=== PATIENT | male | born 2000 | race Caucasian/White ===

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

== ENCOUNTER 2024-01-01 11:02 | Emergency (ER) | payer OTHER, SELFPAY ==
[2024-01-01 11:02] VITALS: BP 118/82; PULSE 115; RESP 16; TEMP 36.3; O2SAT 97
[2024-01-01 11:59] LABS: Absolute Lymphocyte Count 1.44 X10^3/uL (0.83-4.51); Absolute Neutrophil Count 3.7 X10^3/uL (2.0-7.7); Basophil# 0.02 X10^3/uL; Basophil% 0.3 % (0-1); Eosinophil# 0.06 X10^3/uL; Hematocrit 51.8 % (40-54); Hemoglobin 17.9 g/dL (13.0-16.5); Lymphocyte # 1.44 X10^3/ul (0.83-4.51); Lymphocyte % 24.8 % (19-41); Mean Corp Hgb Conc 34.6 g/dL (32-36); Mean Corpuscular Hgb 32.5 pg (27.0-32.0); Mean Platelet Vol. 9.4 fl (6.2-12.0); Monocyte# 0.49 X10^3/uL; Monocyte% 8.4 % (0-10); NRBC Flagged by Analyzer 0 % (0-5); Neutrophil # 3.72 X10^3/uL (2.7-7.7); Neutrophil % 64.1 % (47-70); Platelet Count 249 K/mm3 (150-450); RBC Distribution Width CV 11.9 % (11.6-14.6); RBC Distribution Width SD 41.1 fl (35.1-43.9); Red Blood Count 5.51 M/mm3 (4.6-6.2); White Blood Count 5.8 K/mm3 (4.4-11.0)
[2024-01-01 12:02] VITALS: PULSE 70; RESP 16; O2SAT 98
--- NOTE | 2024-01-01 12:08 | EDS_ITS ---
HPI <JAMILA Maurer - Last Filed: 01/01/24 15:44> HPI - Psych History of Present Illness Chief Complaint: Suicidal Narrative Narrative: Patient presenting today due to a suicide attempt that occurred last night. He reports that he has struggled with depression for a long time but it has progressively gotten worse. He did see his psychiatrist in the past but felt that it only made things worse. He is not on any medications for his depression. He reports that over the past 2 weeks he has had suicidal thoughts every night. Last night, these thoughts became overwhelming and he had a plan to jump off a bridge. He reports that he then left his house to attempt to execute this plan but was stopped by the police and lied to them telling them that he was not suicidal. This morning his parents encouraged to come in to be seen. He denies any previous suicide attempts. He reports occasional alcohol and marijuana use. He denies any HI and hallucinations. PFSH <JAMILA Maurer - Last Filed: 01/01/24 15:44> [facility] Home Medications NK 01/01/24 [History Last Taken Unknown] Allergy/AdvReac Type Severity Reaction Status Date / Time No Known Allergies Allergy Verified 06/24/18 08:57 Social History (Updated 01/01/24 @ 12:21 by Chelsie Chavez) housing: apartment current occupational status: student Smoking Status: Never smoker ROS <JAMILA Maurer - Last Filed: 01/01/24 15:44> ROS ED Constitutional Constitutional ED: Denies chills or fever(s) Cardiovascular Cardiovascular: Denies chest pain Respiratory/Chest Respiratory/Chest: Denies cough or dyspnea Gastrointestinal Gastrointestinal: Denies abdominal pain, nausea or vomiting Musculoskeletal Musculoskeletal: Denies arthralgias or myalgias Integumentary Denies rash Neurologic Neurologic: Denies weakness Psychiatric Psychiatric: Reports depression, suicidal ideation and suicidal thoughts; Denies hallucinations or homicidal ideation EXAM <JAMILA Maurer - Last Filed: 01/01/24 15:44> Physical Exam Const Vital Signs: 01/01/24 11:02 01/01/24 12:02 01/01/24 14:44 Temperature 97.4 F L Temperature Source Temporal Pulse Rate 115 H 70 83 Respiratory Rate 16 16 14 Blood Pressure 118/82 H 112/73 Blood Pressure Mean 94 86 Pulse Ox 97 98 98 Oxygen Delivery Method Room Air Room Air 01/01/24 15:26 Temperature Temperature Source Pulse Rate 60 Respiratory Rate 14 Blood Pressure Blood Pressure Mean Pulse Ox 98 Oxygen Delivery Method Positive well nourished, well developed and no apparent distress General Appearance ED: well developed HEENT Reports normocephalic and head/scalp atraumatic Mouth ED: Yes moist mucous membranes normal Eyes PERRL and EOMs intact bilaterally Neck full ROM and supple Chest Wall inspection of chest normal Resp normal respiratory effort and clear to auscultation bilaterally Cardio regular rate and regular rhythm GI soft to palpation, non-tender, non-distended and no masses Back/Spine normal ROM and normal to inspection Extremity normal to inspection and full ROM Neuro oriented x3, CN's II-XII intact bilaterally, moves all extremities, no focal motor deficits and no sensory deficits noted Sensorium / Orientation: awake and alert Psych cooperative, speech normal, denies hallucinations and denies homicidal ideation Appearance: grossly normal Attitude: withdrawn Activity / Motor Behavior: avoids eye contact Speech: soft Mood & Affect: depressed and flat affect Thought Process: normal thought process Thought Content: suicidality Memory / Cognition: memory grossly intact Insight: poor Judgement: poor Skin no rashes or lesions noted and no wounds <Dr. Jack Meyer MD - Last Filed: 01/01/24 13:58> Physical Exam Const Vital Signs: 01/01/24 11:02 01/01/24 12:02 01/01/24 14:44 Temperature 97.4 F L Temperature Source Temporal Pulse Rate 115 H 70 83 Respiratory Rate 16 16 14 Blood Pressure 118/82 H 112/73 Blood Pressure Mean 94 86 Pulse Ox 97 98 98 Oxygen Delivery Method Room Air Room Air 01/01/24 15:26 Temperature Temperature Source Pulse Rate 60 Respiratory Rate 14 Blood Pressure Blood Pressure Mean Pulse Ox 98 Oxygen Delivery Method MDM <JAMILA Maurer - Last Filed: 01/01/24 15:44> [facility] Narrative Medical decision making narrative: Patient presenting due to suicidal thoughts that he has had over the past 2 weeks. He reports that he did attempt to commit suicide last night but was stopped by the police and was unable to follow through. He reports that he does still feel suicidal. Medical clearance labs will be obtained and crisis will evaluate patient. Crisis does feel that patient would benefit from inpatient treatment. He will be pink slipped. Patient is medically cleared, placement is pending. I have personally performed a face to face assessment of the patient and have reviewed the АЛЕКСАНДР Note. I performed a substantive portion of the visit including all aspects of the following. My novak findings include: History is 23-year-old male with depression and suicidal thoughts of jumping off a bridge. Currently under no psychiatric care. Currently not taking any psychiatric meds. Denies any prior attempts or psychiatric hospitalizations. Exam is [well-appearing 23-year-old male. Vital signs stable afebrile. HEENT exam normal. Lungs clear. Heart regular rhythm no murmur. Rate 70. Abdomen soft nontender. Moving all 4 extremities. Nontender. No wounds or lacerations. Back normal. Neurologically is awake and alert no focal motor deficits. Answering questions and following commands. Cooperative and calm. No smell of alcohol or signs of toxidrome.] Medical Decision Making [ED mental health evaluation. He has been medically cleared. His initial labs so far are negative. He was seen by crisis and they are planning on admitting him and working on that process.] Other additions or changes: [None] Lab Data Labs: Laboratory Results - last 24 hr 01/01/24 01/01/24 11:40 13:30 WBC 5.8 RBC 5.51 Hgb 17.9 H Hct 51.8 MCV 94.0 MCH 32.5 H MCHC 34.6 RDW Std Deviation 41.1 RDW Coeff of Anai 11.9 Plt Count 249 MPV 9.4 Immature Gran % (Auto) 1.400 H Neut % (Auto) 64.1 Lymph % (Auto) 24.8 Daniels % (Auto) 8.4 Eos % (Auto) 1.0 Baso % (Auto) 0.3 Absolute Neuts (auto) 3.7 Absolute Lymphs (auto) 1.44 Nucleated RBC % 0 Sodium 140 Potassium 3.9 Chloride 105 Carbon Dioxide 28.0 Anion Gap 7 BUN 15 Creatinine 1.07 Estim Creat Clear Calc 89.40 Est GFR (MDRD) Af Amer 112 Est GFR (MDRD) Non-Af 93 BUN/Creatinine Ratio 14.0 Glucose 103 Calcium 10.1 Urine Opiates Screen NEGATIVE Urine Methadone Screen NEGATIVE Ur Barbiturates Screen NEGATIVE Ur Phencyclidine Scrn NEGATIVE Ur Amphetamines Screen NEGATIVE MDMA (Ecstasy) Screen NEGATIVE U Benzodiazepines Scrn NEGATIVE Urine Cocaine Screen NEGATIVE U Cannabinoids Screen POSITIVE H Ur Drug Screen Comment Ethyl Alcohol < 3.0 <Dr. Jack Meyer MD - Last Filed: 01/01/24 13:58> [facility] Narrative Medical decision making narrative: Patient presenting due to suicidal thoughts that he has had over the past 2 weeks. He reports that he did attempt to commit suicide last night but was stopped by the police and was unable to follow through. He reports that he does still feel suicidal. Medical clearance labs will be obtained and crisis will evaluate patient. I have personally performed a face to face assessment of the patient and have reviewed the АЛЕКСАНДР Note. I performed a substantive portion of the visit including all aspects of the following. My novak findings include: History is 23-year-old male with depression and suicidal thoughts of jumping off a bridge. Currently under no psychiatric care. Currently not taking any psychiatric meds. Denies any prior attempts or psychiatric hospitalizations. Exam is [well-appearing 23-year-old male. Vital signs stable afebrile. HEENT exam normal. Lungs clear. Heart regular rhythm no murmur. Rate 70. Abdomen soft nontender. Moving all 4 extremities. Nontender. No wounds or lacerations. Back normal. Neurologically is awake and alert no focal motor deficits. Answering questions and following commands. Cooperative and calm. No smell of alcohol or signs of toxidrome.] Medical Decision Making [ED mental health evaluation. He has been medically cleared. His initial labs so far are negative. He was seen by crisis and they are planning on admitting him and working on that process.] Other additions or changes: [None] History & Record Review Discussion w/independent historian: Patient Lab Data Attestation: I reviewed the patient's lab results. Lab results narrative: CBC white count 5 H&H 17 and 51. Platelets 249. Electrolytes show gap 7. Normal BUN of 15 creatinine 1. Glucose 103. Alcohol negative. Labs: Laboratory Results - last 24 hr 01/01/24 01/01/24 11:40 13:30 WBC 5.8 RBC 5.51 Hgb 17.9 H Hct 51.8 MCV 94.0 MCH 32.5 H MCHC 34.6 RDW Std Deviation 41.1 RDW Coeff of Anai 11.9 Plt Count 249 MPV 9.4 Immature Gran % (Auto) 1.400 H Neut % (Auto) 64.1 Lymph % (Auto) 24.8 Daniels % (Auto) 8.4 Eos % (Auto) 1.0 Baso % (Auto) 0.3 Absolute Neuts (auto) 3.7 Absolute Lymphs (auto) 1.44 Nucleated RBC % 0 Sodium 140 Potassium 3.9 Chloride 105 Carbon Dioxide 28.0 Anion Gap 7 BUN 15 Creatinine 1.07 Estim Creat Clear Calc 89.40 Est GFR (MDRD) Af Amer 112 Est GFR (MDRD) Non-Af 93 BUN/Creatinine Ratio 14.0 Glucose 103 Calcium 10.1 Urine Opiates Screen NEGATIVE Urine Methadone Screen NEGATIVE Ur Barbiturates Screen NEGATIVE Ur Phencyclidine Scrn NEGATIVE Ur Amphetamines Screen NEGATIVE MDMA (Ecstasy) Screen NEGATIVE U Benzodiazepines Scrn NEGATIVE Urine Cocaine Screen NEGATIVE U Cannabinoids Screen POSITIVE H Ur Drug Screen Comment Ethyl Alcohol < 3.0 Discharge Plan Triage Chief Complaint: Suicidal ED Midlevel Provider: Tabatha Tidwell ED Provider: Jack Meyer Dx/Rx/DC Orders Clinical Impression: Suicidal thoughts, Depression Prescriptions: No Action NK Primary Care Provider: Care Physician,No Primary Referrals: Care Physician,No Primary [Primary Care Provider] - Disposition Disposition: Psychiatric Hospital or Unit
[2024-01-01 12:12] LABS: Anion Gap 7 (5-15); BUN 15 mg/dL (7-18); Calcium,Total 10.1 mg/dL (8.5-10.1); Chloride 105 mmol/L (98-107); Creatinine, Serum 1.07 mg/dL (0.70-1.30); EST Glomerular Filtration Rate 93 mL/min (>60); Est Glom Filt Rate - Afr Amer 112 mL/min (>60); Glucose 103 mg/dL (74-106); Potassium 3.9 mmol/L (3.5-5.1); Sodium Level 140 mmol/L (136-145)
--- OUTSIDE RECORDS SUMMARY | 2024-01-01 12:19 | XMS RPT_ITS | CCD ---
Author Name Unknown Address [address] [place] [address] Organization [facility] Results Test Name Value Interpretation Reference Range Facil ity Progress note 10-19-2021 Note Date & Type Note Facility 10-19-2021 Note HNO ID: [id number] Author: Noemí Butler APRN.SHROUDMAN Service: ? Author Type: Nurse Practitioner Type: Progress Notes Filed: 10/19/2021 9:55 AM Note Text: Patient was contacted prior to the appointment but did not answer his phone. He did not call back to confirm his appointment. Patient did not log in for his virtual appointment with this provider. [facility] Progress note 08-19-2021 Note Date & Type Note Facility 08-19-2021 Note HNO ID: [id number] Author: Noemí Butler APRN.SHROUDMAN Service: ? Author Type: Nurse Practitioner Type: Progress Notes Filed: 08/19/2021 12:47 PM Note Text: PSYC FOLLOW UP - PSYCHIATRIC PROGRESS NOTE CC: Follow up With the patient consent, visit was performed virtually. HPI: Patient is an 20 year old male who is following up regarding his mood and anxiety concerns. At the last appointment, we had increased his hydroxyzine to help with his difficulty falling and maintaining sleep. Patient was also encouraged to utilize a lower dose of hydroxyzine during the day to help with anxiety. Today, patient shares that he has not noticed hydroxyzine helping with his sleep difficulties. Wakes up throughout the night at least once. Feels that his feelings of anxiety has been worse recently due to adjustment to college. Feels that he is anxious all day long. Cannot identify a particular trigger. Has been using coping skills to manage his anxiety. Appetite has normalized since he has been on campus. The dinning campos that he likes is farther from his dorm. He has not established with counseling services on campus as we had discussed at the last appointment. He has been able to keep up with his school work now. There was a brief period where he was feeling slightly overwhelmed in managing his school work. Denies any stress in his relationships on campus. Improvement in relationship with parents since he is not staying with them. Feels that he has enough social connections on campus. Denies any concerns with isolative behavior. Risks and benefits of the medication, including any black box warnings, were discussed with the patient. Interval Progress: Same PATIENT DATA: Generalized Anxiety Disorder Scale (HA-7) HA - 7 SCORES 06/05/2021 07/06/2021 08/19/2021 HA-7 Score 7 7 12 (0-4) minimal anxiety, (5-9) mild anxiety, (10-14) moderate anxiety, (15-21) severe anxiety Patient Health Questionnaire (PHQ-9) PHQ-9 06/05/2021 07/06/2021 08/19/2021 Score 9 6 5 (0-4) minimal depression, (5-9) mild depression, (10-14) moderate depression, (15-19) moderately severe depression, (20-27) severe depression PROMIS Global Health PROMIS Global Health - (T-Scores - the mean of general population = 50. Five points is a clinically meaningful difference.) 06/05/2021 07/06/2021 08/19/2021 Physical T-Score 47.7 57.7 54.1 Mental T-Score 41.1 41.1 50.8 PAST MEDICAL HISTORY Diagnosis Date - Closed fracture of distal end of right radius with routine healing 11/20/2015 - NEGATIVE MEDICAL HISTORY 11/19/07 Normal color vision - Routine or ritual circumcision PAST SURGICAL HISTORY Procedure Laterality Date - CIRCUMCISION,CLAMP - PAST SURGICAL HISTORY OF 10/2002 circumcision Current Outpatient Medications Medication Sig Dispense Refill - hydrOXYzine HCl (ATARAX) 50 mg tablet Take 1 tablet by mouth daily at bedtime. May also take 0.5 tablets once daily as needed. 45 tablet 1 - FLUoxetine HCl (PROZAC) 40 mg capsule Take 1 capsule by mouth once daily. 90 capsule 0 No current facility-administered medications for this visit. ROS: GENERAL: Negative for malaise, significant weight loss and fever. HEENT: No changes in hearing or vision, no nose bleeds or other nasal problems. RESPIRATORY: Negative for cough, wheezing and shortness of breath. CARDIOVASCULAR: Negative for chest pain, leg swelling and palpitations. GI: Negative for abdominal discomfort, blood in stools or black stools. : Negative for dysuria, frequency and incontinence. MUSCULOSKELETAL: Negative for joint pain or swelling, back pain, and muscle pain. SKIN: Negative for lesions, rash, and itching. HEMATOLOGY/LYMPHOLOGY Negative for prolonged bleeding, bruising easily, and swollen nodes. ENDOCRINE: Negative for cold or heat intolerance, polyuria, polydipsia and goiter. NEURO: Negative for headaches, syncope, seizures and paralysis. PFSH: See HPI VITAL SIGNS: There were no vitals filed for this visit. MENTAL STATUS EXAM: CONSTITUTIONAL: Casually dressed ORIENTATION: Person, Place, Time and Situation MEMORY: Recent intact, Remote intact, Immediate intact CONCENTRATION: Normal MOOD: euthymic AFFECT: Blunted and Flat SPEECH : Clear AND distinct LANGUAGE : Normal ASSOCIATIONS: Intact THOUGHT PROCESS : Logical, Coherent and Rational PROGRESSION : There was no evidence of disturbance in thought perception or progression. FUND OF KNOWLEDGE : Appropriate and Adequate SUICIDE: None HOMICIDE: None DATA REVIEWED: Psychiatric scales and Electronic medical record DIAGNOSIS: 1. PRIMARY: Anxiety Disorder Generalized Anxiety Disorder 2. Secondary : Mood Disorder Major Depressive Disorder, Recurrent, Mild GAF: -60-51 Moderate symptoms or moderate difficulty in social, occupational or school functioning. TREATMENT PLAN: 1. Discontinue Hydroxyzine due to lack of efficacy. 2. Start trazodone at bedtime t (more content not included)... [facility] Progress note 07-06-2021 Note Date & Type Note Facility 07-06-2021 Note HNO ID: [id number] Author: Noemí Butler APRN.SHROUDMAN Service: ? Author Type: Nurse Practitioner Type: Progress Notes Filed: 07/06/2021 10:21 AM Note Text: PSYC FOLLOW UP - PSYCHIATRIC PROGRESS NOTE CC: Follow up With the patient consent, visit was performed virtually. HPI: Patient is an 20 year old male who is following up regarding his mood and anxiety symptoms. At the last visit, we increased his Prozac to 40 mg and added hydroxyzine as needed to help with his difficulty sleep and anxiety related symptoms.He has tolerated the increase in Prozac without any side effects. He shares that hydroxyzine has not helped with his sleep difficulties. He did not try hydroxyzine yet to help with his daytime anxiety. He moved into [employer] in his dorm last week. Class have begin the Thursday of this week. He continues to struggles with feelings of anxiety and has not noticed the increase in Prozac helping with those yet. Feels more anxious during the day. Struggles falling and staying asleep. His appetite is improving. Encouraged to establish with a counselor on campus. Risks and benefits of the medication, including any black box warnings, were discussed with the patient. Interval Progress: Improved PATIENT DATA: Generalized Anxiety Disorder Scale (HA-7) HA - 7 SCORES 06/05/2021 07/06/2021 HA-7 Score 7 7 (0-4) minimal anxiety, (5-9) mild anxiety, (10-14) moderate anxiety, (15-21) severe anxiety Patient Health Questionnaire (PHQ-9) PHQ-9 06/05/2021 07/06/2021 Score 9 6 (0-4) minimal depression, (5-9) mild depression, (10-14) moderate depression, (15-19) moderately severe depression, (20-27) severe depression PROMIS Global Health PROMIS Global Health - (T-Scores - the mean of general population = 50. Five points is a clinically meaningful difference.) 06/05/2021 07/06/2021 Physical T-Score 47.7 57.7 Mental T-Score 41.1 41.1 PAST MEDICAL HISTORY Diagnosis Date - Closed fracture of distal end of right radius with routine healing 11/20/2015 - NEGATIVE MEDICAL HISTORY 11/19/07 Normal color vision - Routine or ritual circumcision PAST SURGICAL HISTORY Procedure Laterality Date - CIRCUMCISION,CLAMP - PAST SURGICAL HISTORY OF 10/2002 circumcision Current Outpatient Medications Medication Sig Dispense Refill - FLUoxetine HCl (PROZAC) 40 mg capsule Take 1 capsule by mouth once daily. 30 capsule 1 - hydrOXYzine HCl (ATARAX) 25 mg tablet Take 1 tablet by mouth at bedtime as needed. 30 tablet 1 No current facility-administered medications for this visit. ROS: GENERAL: Negative for malaise, significant weight loss and fever. HEENT: No changes in hearing or vision, no nose bleeds or other nasal problems. RESPIRATORY: Negative for cough, wheezing and shortness of breath. CARDIOVASCULAR: Negative for chest pain, leg swelling and palpitations. GI: Negative for abdominal discomfort, blood in stools or black stools. : Negative for dysuria, frequency and incontinence. MUSCULOSKELETAL: Negative for joint pain or swelling, back pain, and muscle pain. SKIN: Negative for lesions, rash, and itching. HEMATOLOGY/LYMPHOLOGY Negative for prolonged bleeding, bruising easily, and swollen nodes. ENDOCRINE: Negative for cold or heat intolerance, polyuria, polydipsia and goiter. NEURO: Negative for headaches, syncope, seizures and paralysis. PFSH: Has enjoyed classes so far. It has not increased his anxiety. Has been talking to others socially and engaging in other activities. Denies struggles with social anxiety. Family stress better since he moved. Parents are visiting him this weekend and will bring his medications for him. VITAL SIGNS: There were no vitals filed for this visit. MENTAL STATUS EXAM: CONSTITUTIONAL: Well groomed, Casually dressed ORIENTATION: Person, Place, Time and Situation MEMORY: Recent intact, Remote intact, Immediate intact CONCENTRATION: Normal MOOD: euthymic AFFECT: Full and appropriate to topic SPEECH : Clear AND distinct LANGUAGE : Normal ASSOCIATIONS: Intact THOUGHT PROCESS : Logical, Coherent and Rational PROGRESSION : There was no evidence of disturbance in thought perception or progression. FUND OF KNOWLEDGE : Appropriate and Adequate SUICIDE: None HOMICIDE: None DATA REVIEWED: Psychiatric scales and Electronic medical record DIAGNOSIS: 1. PRIMARY: Anxiety Disorder Generalized Anxiety Disorder 2. Secondary : Mood Disorder Major Depressive Disorder, Recurrent, Mild GAF: -60-51 Moderate symptoms or moderate difficulty in social, occupational or school functioning. TREATMENT PLAN: 1. Continue Prozac at 40 mg dose. 2. Increase hydroxyzine to help with anxiety and sleep at night and anxiety during the day. 3. Establish with a college counselor on campus for therapy. MEDICATION CHANGES: - Prozac 40 mg - take 1 capsule once daily - Hydroxyzine 50 mg - take 1 tablet at bedtime as needed and 1/2 tablet during (more content not included)... [facility] Progress note 06-05-2021 Note Date & Type Note Facility 06-05-2021 Note HNO ID: [id number] Author: Noemí Butler APRN.SHROUDMAN Service: ? Author Type: Nurse Practitioner Type: Progress Notes Filed: 06/05/2021 10:20 AM Note Text: PSYC NEW - PSYCHIATRIC ASSESSMENT Patient was seen for an initial evaluation. All information is from Patient report except when noted. This evaluation is NOT intended for forensic, disability or child custody purposes. 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 REFERRAL SOURCE: PCP - Vania Ochoa CHIEF COMPLAINT: Things have improved with Prozac but still struggles with anxiety. HPI: Has noticed feelings of anxiety and depression starting this year. Denies any concerns at school. In March 2021 he saw PCP and reported worsening depression and anxiety symptoms. Anxiety is worse than depression. Prozac was initiated by PCP and recently increased to 30 mg. He has tolerated the increase without any side effects. It has helped more with his depression than anxiety. Anxiety comes and goes throughout the day versus being consistent. Energy level is low during the day as he is not getting restful sleep at night. Tends to procrastinate but does finish tasks. Struggles with motivation. Has ran cross country and track in high school but does not plan to continue that for college . Has been riding his bike. Snow boards in the winter. Patient does share stressors in his relationship with his parents. He looks forward to moving in to [employer] next month for school. Sleep: difficulty staying asleep. Gets around 7 hours of sleep but it is interrupted. Interest: Improved in the last 2 months since Prozac was started Guilt: none Energy: low Concentration: good Appetite: was low before but he has noticed it to be improving in the past 2 weeks. Psychomotor Activity: psychomotor activity was WNL. Suicide: None Phobias: no irrational fears Memory: Good Anxiety: high and panic symptoms/attacks. Does have panic attacks once a week. They only last a few minutes. Obsessions: None Compulsions: need for symmetry and organizing Yandy: Inflated self esteem. Pt reports decreased need for sleep. Racing of thoughts PTSD: The patient denies being expose to or witnessing traumatic events. Self Mutilation: Denies PAST MEDICAL HISTORY Diagnosis Date - Closed fracture of distal end of right radius with routine healing 11/20/2015 - NEGATIVE MEDICAL HISTORY 11/19/07 Normal color vision - Routine or ritual circumcision PAST SURGICAL HISTORY Procedure Laterality Date - CIRCUMCISION,CLAMP - PAST SURGICAL HISTORY OF 10/2002 circumcision Current Outpatient Medications Medication Sig Dispense Refill - FLUoxetine (PROZAC) 10 mg capsule Take 3 capsules by mouth once daily. 90 capsule 0 No current facility-administered medications for this visit. VITAL SIGNS: 06/05/21 0847 BP: 104/60 Weight: 56.2 kg (124 lb) Height: 175.3 cm (5' 9 ) ROS: All other systems negative. PSYCHIATRIC HISTORY: Prior Diagnosis: Major Depressive Disorder Prior Provider: No prior psychiatrist Therapist: No prior therapist Current Scrap Breaker: no Last Hospitalization: Denies hospitalization. ECT: no Previous Discontinued Psychiatric Med Trials: Prozac. Has not taken any other medications in the past. SUBSTANCE USE HISTORY: Nicotine: None Caffeine: 2 energy drinks a week Alcohol: No history of use or dependence Marijuana: No history of use or dependence Cocaine: No history of use or dependence Opiods: No history of use or dependence SPIRITUALITY: no PFSH: Nicholas Munoz has a half brother in [place]. The patient was born and raised in [place], [place]. He completed Some college. 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 He described his childhood as strict. Has fairly strict parents who are supportive. He is not very close to his parents. Has good relationships with friends and co-workers and identifies them as his support system. The patient lives with parents. Moving to a drom at [employer] next moth. Will have 1 roommate. Service: None Legal: Pt. denied any past legal history FAMILY PSYCHIATRIC HISTORY: Maternal Grandfather-Bipolar Affective Disorder PATIENT DATA: Generalized Anxiety Disorder Scale (HA-7) HA - 7 SCORES 06/05/2021 HA-7 Score 7 (0-4) minimal anxiety, (5-9) mild anxiety, (10-14) moderate anxiety, (15-21) severe anxiety Patient Health Questionnaire (PHQ-9) PHQ-9 06/05/2021 Score 9 (0-4) minimal depression, (5-9) mild depression, (10-14) moderate depression, (15-19) moderately severe depression, (20-27) severe depression PROMIS Global Health PROMIS Global Health - (T-Scores - the mean of general population = 50. Five points is a clinically meaningful difference.) 06/05/2021 Physical T-Score 47.7 Mental T-Score 41.1 MENTAL STATUS EXAMINATION: (more content not included)... [facility] Progress note 05-30-2021 Note Date & Type Note Facility 05-30-2021 Note HNO ID: [id number] Author: Vania Ochoa APRN.SHROUDMAN Service: ? Author Type: Nurse Practitioner Type: Progress Notes Filed: 06/05/2021 7:55 AM Note Text: DISTANCE HEALTH PEDIATRIC VISIT Patient seen on [employer] video visit platform Nicholas Munoz physically located in the [facility]. PCP: Vania Ochoa APRN.SHROUDMAN See demographics for Nicholas's permanent address. Nicholas Munoz is a 20 year old male who presents with depressed mood and anxiety for follow up visit. Currently taking Fluoxetine 20 mg since 04/11/21. The medication is helping some. Reports symptoms are about the same since last visit; reports still having feelings of depressed mood and low energy. Will be attending [employer] in June History was obtained from: patient PAST MEDICAL HISTORY Diagnosis Date - Closed fracture of distal end of right radius with routine healing 11/20/2015 - NEGATIVE MEDICAL HISTORY 11/19/07 Normal color vision - Routine or ritual circumcision ROS for medication side effects: Abdominal pain: no Appetite problems: yes Drowsiness: no Sleep problems: yes Headaches: no Depression: no Suicidal ideation: no Agitation: no Yandy: no Tremors: no Weight change: no ALLERGIES: ALLERGIES No Known Allergies MEDICATIONS: FLUoxetine (PROZAC) 10 mg capsule Take 3 capsules by mouth once daily. FAMILY HISTORY Problem Relation Age of Onset - None Father - Colon Cancer Paternal Grandmother - Diabetes Paternal Grandfather Type II - Hypertension Maternal Grandfather - Heart Maternal Grandfather heart disease - other (Bipolar) Maternal Grandfather - Hypertension Maternal Grandmother - Arthritis Maternal Grandmother - Allergies Mother Seasonal VIDEO EXAM: performed via video enabled technology General: Well developed, No acute distress Eyes: clear, no drainage, pupils equal Nose: no exudate OP: moist mucous membranes Lungs: nonlabored breathing, no audible cough or wheezing Neuro: no slurred speech Skin: no rashes, lesions or jaundice Psych: appropriate affect, good eye contact ASSESSMENT/PLAN: 20 year old male with anxiety and depression without optimization of symptoms and without significant medication side effects. Encounter Diagnosis ICD-10-CM 1. Moderately severe depression (HCC) F32.2 FLUoxetine (PROZAC) 10 mg capsule 2. Anxiety disorder, unspecified type F41.9 FLUoxetine (PROZAC) 10 mg capsule - Increase dosage to 30mg daily - Follow up in 2 weeks since medication or dose changed - Discussed benefits of counseling and encouraged to seek out mental health services available at [facility] SIGNATURE: Vania Ochoa APRN.CNP PATIENT NAME: Nicholas Munoz DATE: May 30, 2021 TIME: 8:15 AM [facility] Progress note 04-22-2021 Note Date & Type Note Facility 04-22-2021 Note HNO ID: [id number] Author: Vania Ochoa APRN.CNP Service: ? Author Type: Nurse Practitioner Type: Progress Notes Filed: 05/07/2021 8:01 AM Note Text: [facility] PEDIATRIC VISIT SERVICE DATE: 04/22/2021 SERVICE TIME: 1:41 PM Patient seen on [employer] video visit platform Nicholas Munoz physically located in the [facility]. PCP: Vania Ochoa APRN.CNP See demographics for Nicholas's permanent address. Nicholas Munoz is a 20 year old male who presents with depressed mood and anxiety for follow up visit. Currently taking Fluoxetine 20 mg since 04/11/21. The medication is helping some. History was obtained from: patient Current symptoms: irritability, low energy, trouble sleeping (no improvement), some hx of insomnia No other interventions, no screens in bedroom, variable bedtime Severity of Symptoms: moderate Context: home PAST MEDICAL HISTORY Diagnosis Date - Closed fracture of distal end of right radius with routine healing 11/20/2015 - NEGATIVE MEDICAL HISTORY 11/19/07 Normal color vision - Routine or ritual circumcision ROS for medication side effects: Abdominal pain: no Appetite problems: no Drowsiness: yes Sleep problems: yes Headaches: no Depression: no Suicidal ideation: no Agitation: no Yandy: no Tremors: no Weight change: no ALLERGIES: ALLERGIES No Known Allergies MEDICATIONS: FLUoxetine (PROZAC) 20 mg capsule Take 1 capsule by mouth once daily. FAMILY HISTORY Problem Relation Age of Onset - None Father - Colon Cancer Paternal Grandmother - Diabetes Paternal Grandfather Type II - Hypertension Maternal Grandfather - Heart Maternal Grandfather heart disease - other (Bipolar) Maternal Grandfather - Hypertension Maternal Grandmother - Arthritis Maternal Grandmother - Allergies Mother Seasonal Anxiety: yes Depression: yes Schizophrenia: no Bipolar: no ADD/ADHD: no Social History: Patient lives with both parents Recent stressors: family problems Smoking or substance abuse: No VIDEO EXAM: performed via video enabled technology General: Well developed, No acute distress Eyes: clear, no drainage Nose: no exudate OP: moist mucous membranes Lungs: nonlabored breathing, no audible cough or wheezing Neuro: no facial droop and no slurred speech Skin: no rashes, lesions or jaundice Psych: appropriate affect, good eye contact ASSESSMENT/PLAN: 20 year old male with depression without optimization of symptoms and without significant medication side effects. Encounter Diagnosis ICD-10-CM 1. Moderately severe depression (HCC) F32.2 - Continue current medication. - Follow up in 2 weeks. - Appt scheduled with adult psychiatry SIGNATURE: Vania Ochoa APRN.CNP PATIENT NAME: Nicholas Munoz DATE: May 06, 2021 TIME: 8:51 AM [facility] Progress note 04-13-2021 Note Date & Type Note Facility 04-13-2021 Note HNO ID: [id number] Author: Vania Ochoa APRN.MORE Service: ? Author Type: Nurse Practitioner Type: Progress Notes Filed: 04/15/2021 8:35 AM Note Text: DISTANCE HEALTH PEDIATRIC SICK VISIT Patient seen on [employer] video visit platform Nicholas Munoz physically located in the [facility]. PCP: Dario Patten MD See demographics for Nicholas's permanent address. Nicholas Munoz is a 20 year old male who presents for a distance health visit for follow up of depression and anxiety. Child started on fluoxetine 10mg on 04/04/21 and increased to 20mg after one week. The medication is helping some. History was obtained from: patient Current symptoms: sadness, irritability, low energy, lack of motivation and anxiety, insomnia, poor appetite - reports same sx as last visit but less frequent Severity of Symptoms: moderate Context: no pattern, sx occur in different contexts ACTIVE PROBLEM LIST Erythrocytosis - 09/08/2017 PAST MEDICAL HISTORY Diagnosis Date - Closed fracture of distal end of right radius with routine healing 11/20/2015 - NEGATIVE MEDICAL HISTORY 11/19/07 Normal color vision - Routine or ritual circumcision ALLERGIES: ALLERGIES No Known Allergies MEDICATIONS: FLUoxetine (PROZAC) 10 mg capsule Take 10 mg by mouth once daily for 7 days, then take 20mg once daily. ROS for medication side effects: Abdominal pain: no Appetite problems: no Drowsiness: no Sleep problems: no, not new Headaches: no Depression: no Suicidal ideation: no Agitation: no Yandy: no Tremors: no Weight change: no VIDEO EXAM: performed via video enabled technology General: Well appearing, No acute distress Affect: Good eye contact through video, engaged Eyes: clear, no drainage, pupils equal Nose: no exudate OP: moist mucous membranes Lungs: nonlabored breathing, no audible cough or wheezing Skin: no rashes PHQ-9 score 04/02/21: 16, moderately severe depression PHQ-9 score 04/13/21: 6, mild depression Assessment AND Plan: 20 year old male with depression and anxiety without optimization of symptoms and without significant medication side effects. - Continue current medication. - Follow up in one week for re-evaluation. - Return sooner if any concerns. Continue to monitor for worsening symptoms or suicidal ideation. SIGNATURE: Vania Ochoa APRN.MORE PATIENT NAME: Nicholas Munoz DATE: April 13, 2021 TIME: 11:31 AM [facility] Progress note 04-02-2021 Note Date & Type Note Facility 04-02-2021 Note HNO ID: [id number] Author: Vania Ochoa APRN.MORE Service: ? Author Type: Nurse Practitioner Type: Progress Notes Filed: 04/03/2021 8:52 AM Note Text: PEDIATRIC FOLLOW UP VISIT SERVICE DATE: 04/02/2021 SERVICE TIME: 10:31 AM Nicholas Munoz is a 20 year old male who presents with depressed mood, anxiety, insomnia, and difficulty concentrating. Patient was seen for initial evaluation of depressed mood 3 weeks ago, 03/13/21 and was hesitant to start pharmaceutical intervention at that time. Counseling with CBT was also recommended and patient did not plan to seek counseling. Reports feeling a little better since last visit. Denies trying recommended interventions such as increased physical activity or time outdoors. Finished high school and will attend upcoming graduation ceremony. 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 Getting along alright with parents Reports difficulty falling asleep. Has tried limiting electronics before bed, sleeping in a cool, dark room. Reports poor appetite with weight loss. Current symptoms: sadness, irritability, low energy, lack of motivation and anxiety, insomnia, poor appetite Severity of Symptoms: moderate Context: home, difficulty concentrating in general, able to complete tasks at work History was obtained from: patient Patient is unsure of family hx including previous diagnoses or tx for depression or anxiety. MGF with hx of bipolar disorder. PAST MEDICAL HISTORY Diagnosis Date - Closed fracture of distal end of right radius with routine healing 11/20/2015 - NEGATIVE MEDICAL HISTORY 11/19/07 Normal color vision - Routine or ritual circumcision REVIEW OF SYSTEMS: GENERAL: Positive for decreased appetite and weight loss, negative for recent illness or fever HEENT: Negative for congestion or rhinorrhea. RESPIRATORY: Negative for cough, wheezing or respiratory distress GI: Negative for vomiting or diarrhea. SKIN: Negative for lesions, rash, and itching. PHYSICAL EXAM: BP 100/62 Pulse 88 Temp 36.8 ?C (98.2 ?F) (Temporal) Resp 16 Ht 171.1 cm (5' 7.36 ) Wt 59.4 kg (131 lb) BMI 20.30 kg/m? Blood pressure percentiles are not available for patients who are 18 years or older. General: Well developed, No acute distress Neck: supple and no adenopathy Lungs: clear to auscultation bilaterally, good air exchange, no retractions Heart: Normal rate, regular rhythm, no murmur Abdomen: Soft, nontender, nondistended, no palpable organomegaly or masses, normal bowel sounds Skin: Normal color, texture and turgor. No rashes. Assessment AND Plan: 20 year old male with depression and anxiety without optimization of symptoms and will initiate SSRI treatment today. - PHQ-9 score 03/13/21: 17, moderately severe depression - PHQ-9 score 04/02/21: 16, moderately severe depression - HA-7 score 03/13/21: 15, severe anxiety - HA-7 score 04/02/21: 14, moderate anxiety - Will start fluoxetine today with 10mg daily and increase to 20mg daily after one week if no adverse effects - Follow up in one week via virtual visit - Discussed need for weekly follow up in first month of initiating medication - Discussed possible side effects including black box warning for increased risk of suicidality - Encouraged patient to contact clinic if having adverse effects. Discussed resources available for suicidal thoughts including suicide hotline. - Patient education handouts given: psychological counseling for depression, antidepressant medication and you, suicide: what should I know (with suicide hotline information), self-care success, faqs about depression, common ssri side effects including black box warning, how can you help with sleep problems Handouts given for parent: family support action plan SIGNATURE: Vania Ochoa APRN.CNP PATIENT NAME: Nicholas Munoz DATE: April 02, 2021 TIME: 10:28 AM [facility] Progress note 03-13-2021 Note Date & Type Note Facility 03-13-2021 Note HNO ID: [id number] Author: Vania Ochoa APRN.CNP Service: ? Author Type: Nurse Practitioner Type: Progress Notes Filed: 03/18/2021 7:41 AM Note Text: PEDIATRIC INITIAL VISIT SERVICE DATE: 03/13/2021 History was obtained from: patient HISTORY OF PRESENT ILLNESS: Nicholas is a 20 year old male presenting with concerns regarding depressed mood and anxiety accompanied by his father. Reports sx started several years ago but progressively worse over the past few months. Is the patient currently in treatment? No; no hx of counseling or pharm intervention. Recent changes or stressors at home or school? Yes, started working at a restaurant about 4 months ago; reports this is a positive change, does well at work and gets along with coworkers. Reports recent conflict with parents; reports he does not have freedom at home. 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 He has felt this way for the past 3 months but with less severe intermittent sx throughout high school. 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 The patient reports maintaining a stable academic performance. Reports his grades have dropped slightly but may be due to virtual classes/not meeting professors in person. Is 3rd in his high school class. -The patient is in honors classes and online college classes -Missed days of school? Yes, 1 week of school after receiving chad and chad covid vaccine PSYCHIATRIC REVIEW OF SYMPTOMS: Depression: Increased irritability Sad mood or feeling empty Functionally impairing anhedonia Decreased appetite with mood changes, reports losing close to 12 pounds after this month Fidgety, trouble concentraing, low energy Anxiety: feelings of anxiety, feeling on edge/restless, difficult to relax, some sense of discomfort all day long Racing thoughts and difficulty falling asleep Reports past marijuana use but has not had marijuana over past 4 weeks; sx have gotten progressively worse Is more open to taking medication as opposed to going to counseling PAST PSYCHIATRIC HISTORY: -Are there previous psychiatric diagnoses? No -Has the patient received prior out patient mental care? No -Previous psychiatric medication trials: No -Has there been a history of significant or chronic self injury? No -Have there been any previous suicide attempts? Patient denies previous suicide attempts PERTINENT FAMILY HISTORY: FAMILY HISTORY Problem Relation Age of Onset - None Father - Colon Cancer Paternal Grandmother - Diabetes Paternal Grandfather Type II - Hypertension Maternal Grandfather - Heart Maternal Grandfather heart disease - other (Bipolar) Maternal Grandfather - Hypertension Maternal Grandmother - Arthritis Maternal Grandmother - Allergies Mother Seasonal Anxiety: No Depression: No Schizophrenia: No Bipolar: Yes, mgm ADD/ADHD: No MEDICAL HISTORY: PAST MEDICAL HISTORY Diagnosis Date - Closed fracture of distal end of right radius with routine healing 11/20/2015 - NEGATIVE MEDICAL HISTORY 11/19/07 Normal color vision - Routine or ritual circumcision -No recent illness, other than feeling sick after covid with fever tmax 102F tactile, chills, nausea, vomiting OBJECTIVE PHQ-A score 17 (recommended cut off score is 11) [place]-SUICIDE SEVERITY RATING SCALE Screen with Triage Points for Primary Care 1. In the past month, have you wished you were or wished you could go to sleep and not wake up? NO 2. In the past month, have you actually had any thoughts of killing yourself? NO 6. Have you ever done anything, started to do anything, or prepared to do anything to end your life? Examples: Collected pills, obtained a gun, gave away valuables, wrote a will or suicide note, took out pills but didn't swallow any, held a gun but changed your mind or it was grabbed from your hand, went to the roof but didn't jump; or actually took pills, (more content not included)... [facility] Summary Purpose Family History No Family History Records Found Advance Directives No Advanced Directives Records Found Additional Source Comments (unrecognized sect ion and content) No Status Records Found INFORMATION SOURCE (unrecogn ized section and content) FOR RECORDS PERTAINING TO PATIENTS WHO ARE OR HAVE BEEN ENROLLED IN A CHEMICAL DEPENDENCY/SUBSTANCEABUSE PROGRAM, SOME INFORMATION MAY BE OMITTED. This clinical summary was aggregated from multiple sources. Caution should be exercised in using it in the provision of clinical care. This summary normalizes information from multiple sources, and as a consequence, information in this document may materially change the coding, format and clinical context of patient data. In addition, data may be omitted in some cases. CLINICAL DECISIONS SHOULD BE BASED ON THE PRIMARY CLINICAL RECORDS. [employer] provides no warranty or guarantee of the accuracy or completeness of information in this document.
[2024-01-01 12:25] LABS: Alcohol, Blood (Medical)-Serum < 3.0 mg/dL
[2024-01-01 14:35] LABS: Amphetamine Urine VISTA NEGATIVE (<1000 ng/mL); Barbiturate Urine VISTA NEGATIVE (< 200 ng/mL); Benzodiazepine Urine VISTA NEGATIVE (< 200 ng/mL); Cocaine Urine VISTA NEGATIVE (< 300 ng/mL); Ecstacy Urine VISTA NEGATIVE (< 500 ng/mL); Methadone Urine VISTA NEGATIVE (< 300 ng/mL); PCP Urine VISTA NEGATIVE (< 25 ng/mL); THC Urine VISTA POSITIVE (< 50 ng/mL); Vista UDS pH Range 7
[2024-01-01 14:44] VITALS: BP 112/73; PULSE 83; RESP 14; O2SAT 98
--- NOTE | 2024-01-01 15:22 | ED.RN ---
Patient's parents asking if they could have an update. Patient agreed to allow this to give them one. Placement is still pending at this time. Parents very concern and upset with the situation. 20 minutes of 1:1 time spent with them. The patient at this time does not want his parents back in the room. Patient has been cooperative and calm. Sitter at bedside. Drink and food offered. Patient resting in bed awake.
[2024-01-01 15:26] VITALS: PULSE 60; RESP 14; O2SAT 98
[2024-01-01] MEDS: LORazepam 1 MG Tablet PO (17:37)
--- NOTE | 2024-01-01 18:02 | ED.RN ---
[facility]AN[facility]A [facility] CALLED, STATED PT HAS BEEN REFERRED TO [facility] [facility].
[2024-01-01 18:58] VITALS: BP 112/75; PULSE 92; RESP 16; O2SAT 96
[2024-01-01 20:03] VITALS: BP 121/69; PULSE 91; RESP 16; TEMP 36.6; O2SAT 99
== END 2024-01-01 20:05 ==
PROVIDERS: Physician Assistant; Emergency Provider Emergency Medicine; Visit Provider Emergency Medicine
DX: R45.851 Suicidal ideations (principal); F32.A Depression, unspecified; Z62.811 Personal history of psychological abuse in childhood
CPT/HCPCS: 80048; 80307; 80320; 85025; 99284; G0480